=== PATIENT | female | born 1970 | race African-American/Black ===

== ENCOUNTER 2019-10-16 11:46 | Emergency (ER) | payer OTHER, SELFPAY ==
[2019-10-16 12:07] VITALS: BP 125/82; PULSE 69; RESP 16; TEMP 36.6; O2SAT 100
--- NOTE | 2019-10-16 12:08 | ECG_ITS ---
Measurements Intervals [place] Rate: 64 P: 44 IA: 153 QRS: -1 QRSD: 81 T: -20 QT: 385 QTc: 398 Interpretive Statements SINUS RHYTHM LOW QRS VOLTAGE IN PRECORDIAL LEADS BORDERLINE ST-T WAVE ABNORMALITY- INFERIOR LEADS BORDERLINE ECG Electronically Signed On 10-16-2019 13:04:08 CDT by Anatoliy Lee D.O.
--- NOTE | 2019-10-16 12:11 | ED.CHESTPAIN ---
HPI - Chest Pain General Chief Complaint: Chest Pain Stated Complaint: Chest pain Time Seen by Provider: 10/16/19 11:58 Source: patient and RN notes reviewed Mode of arrival: ambulatory Limitations: no limitations History of Present Illness HPI narrative: Patient presents today with a 2-day history of right sternal chest pain with no radiation. She describes the pain as tightness. Pain does not increase when she takes a deep breath or with movement. Denies cough or recent illness. Denies sweats or chills, or known fever. Denies any nausea, vomiting, abdominal pain. On September 26, patient had an MS and was seen at [facility]. Days after her discharge, she was returned with a CVA. She also had an implanted child monitor placed during this timeframe. She currently takes aspirin, Plavix, amlodipine, atorvastatin, carvedilol. She stopped smoking when she had the MS. States she believes her right breast is swollen as well. Currently rates her pain 02/01. MD complaint: chest pain Related Data Home Medications Medication Instructions Recorded Confirmed amlodipine [Norvasc] 10 mg PO DAILY 10/16/19 10/16/19 aspirin 81 mg PO DAILY 10/16/19 10/16/19 atorvastatin [Lipitor] 40 mg PO DAILY 10/16/19 10/16/19 carvedilol [Coreg] 12.5 mg PO BID 10/16/19 10/16/19 clopidogrel [Plavix] 75 mg PO DAILY 10/16/19 10/16/19 nicotine 1 patch TRANSDERMAL DAILY 10/16/19 10/16/19 Allergies Allergy/AdvReac Type Severity Reaction Status Date / Time hydrocodone Allergy Hallucinati Verified 10/16/19 12:04 ng Review of Systems Review of Systems: Narrative: CONSTITUTIONAL: Denies body aches, fever, chills, or sweats. EYES: Denies visual changes, redness, or discharge. ENT: Denies rhinorrhea, congestion, sore throat, or otalgia. CARDIOVASCULAR: Denies palpitations, or edema.+ Chest pain RESPIRATORY: Denies cough or dyspnea. GASTROINTESTINAL: Denies abdominal pain, nausea, vomiting, or diarrhea. GENITOURINARY: Denies dysuria or hematuria. SKIN: Denies rash, itching, or wounds. Right breast swelling MUSCULOSKELETAL: Denies back pain, joint pain, or myalgia. NEUROLOGIC: Denies headache, numbness, tingling, or weakness. PSYCH: Denies depression or anxiety. ON LICENSE OF [facility] Past Medical History Medical History (Updated 10/16/19 @ 12:20 by Hailey Harding, [employer], ) History of CVA (cerebrovascular accident) History of myocardial infarction Comments At time of signature, I have reviewed and agree with nursing past medical, surgical, social and family history unless otherwise noted. Please see nursing chart for further information. There is no relevant family history pertinent to the presenting complaint Exam Narrative: Exam Narrative: GENERAL: Well-appearing, well-nourished, and in no acute distress. HEAD: Normocephalic, atraumatic. EYES: EOMI. No redness or drainage. Conjunctivae normal. ENT: Mucous membranes pink and moist. NECK: Normal AROM. Supple. No lymphadenopathy. CHEST: No respiratory distress. Clear to auscultation. Chest is nontender to palpation. Right breast appears normal. It is nontender to palpation. HEART: Regular rate and rhythm. No murmur appreciated. Normal peripheral pulses. ABDOMEN: Soft, nontender, nondistended, normal active bowel sounds. MUSCULOSKELETAL: No bony tenderness. EXTREMITIES: Normal range of motion. No edema. Strength normal in all extremities. SKIN: Warm, dry, no rash. NEURO: No focal deficits. Alert and oriented x3. Gait steady. PSYCH: Normal affect. No signs of depression or anxiety. Course Vital Signs Vital signs: Vital Signs Temperature 97.8 F 10/16/19 12:07 Pulse Rate 69 10/16/19 12:07 Respiratory Rate 16 10/16/19 12:07 Blood Pressure 125/82 10/16/19 12:07 Pulse Oximetry 100 10/16/19 12:07 Temperature 97.8 F 10/16/19 12:07 Pulse Rate 69 10/16/19 12:07 Respiratory Rate 16 10/16/19 12:07 Blood Pressure 125/82 10/16/19 12:07 Pulse Oximetry 100 10/16/19 12
--- NOTE | 2019-10-16 12:27 | ECG_ITS ---
Measurements Intervals [place] Rate: 64 P: 44 NV: 153 QRS: -1 QRSD: 81 T: -20 QT: 385 QTc: 398 Interpretive Statements SINUS RHYTHM LOW QRS VOLTAGE IN PRECORDIAL LEADS BORDERLINE ST-T WAVE ABNORMALITY- INFERIOR LEADS BORDERLINE ECG Electronically Signed On 10-16-2019 13:04:08 CDT by Anatoliy ALMONTE
== END 2019-10-16 12:15 | disposition short-term general hospital (02) ==
PROVIDERS: Emergency Provider Nurse Practitioner; PCP Family Medicine
DX: R07.9 Chest pain, unspecified (principal); Z86.73 Personal history of transient ischemic attack (TIA), and cerebral infarction without residual deficits; I25.2 Old myocardial infarction; Z79.01 Long term (current) use of anticoagulants; Z87.891 Personal history of nicotine dependence
CPT/HCPCS: 93005; 99212; G0463

== ENCOUNTER 2020-12-26 17:09 | Outpatient (CLI) | payer OTHER, SELFPAY ==
--- NOTE | ~2020-12-26 | MM_ITS ---
EXAMINATION: MM screening nica BI w giovanni HISTORY: Screening TECHNIQUE: Craniocaudal and mediolateral oblique 3-D tomosynthesis images were obtained and synthetic 2-D images were generated. CAD analysis was submitted and interpreted. COMPARISON: 09/20/2018 BREAST PARENCHYMAL COMPOSITION: The breasts are heterogeneously dense, which may obscure small masses . FINDINGS: There are asymmetries in the upper central right breast, middle third. The left breast is s table without evidence for malignancy. IMPRESSION: 1. Focal right breast asymmetry. 2. Additional mammographic views and possible breast ultrasound are recommended. BI-RADS Category 0: Incomplete: Needs additional imaging evaluation. Reviewed, dictated and finalized at location A. IMPRESSION: 1. Focal right breast asymmetry. 2. Additional mammographic views and possible breast ultrasound are recommended . BI-RADS Category 0: Incomplete: Needs additional imaging evaluation.
== END 2020-12-26 17:10 | disposition home or self-care (01) ==
LOC: ANHIMG 17:12
PROVIDERS: PCP Family Medicine; Visit Provider Family Medicine
DX: Z12.31 Encounter for screening mammogram for malignant neoplasm of breast (principal); R92.8 Other abnormal and inconclusive findings on diagnostic imaging of breast
CPT/HCPCS: 77063; 77067

== ENCOUNTER → 2021-01-24 08:37 | Outpatient (CLI) | payer OTHER, SELFPAY ==
--- NOTE | ~2021-01-24 | MMUS_ITS ---
EXAMINATION: MM diagnostic mammo unilat RT, US breast RT complete HISTORY: Follow-up right breast asymmetries TECHNIQUE: Additional 3-D tomosynthesis images of the right breast were performed and synthetic 2-D i mages were generated. CAD analysis was submitted and interpreted. High resolution complete right sly st ultrasound was performed. COMPARISON: 12/26/2020 BREAST PARENCHYMAL COMPOSITION: Breast composed of scattered areas of fibroglandular density. FINDINGS: MAMMOGRAPHIC FINDINGS: Focal asymmetry in the upper central aspect of the right breast is persistent, although no discrete m ass is identified. There is no focal architectural distortion or suspicious cluster of calcifications . ULTRASOUND: Complete right breast ultrasound: At 1:00, 4 cm from the nipple, there is an 8 mm cyst. At 7:00, 6 cm from the nipple, there is an 8 mm cyst. Near the arterial lobe there is a cystic structure measuring up to 9 mm which may represent a cluster of cyst or a focally dilated duct. No suspicious masses are identified. IMPRESSION: 1. No evidence for malignancy in the right breast. Benign findings. 2. Routine yearly screening mammogram and regular clinical breast examination are recommended. BI-RADS Category 2: Benign finding(s). Reviewed, dictated and finalized at location A. IMPRESSION: 1. No evidence for malignancy in the right breast. Benign findings. 2. Routine yearly screening mammogram and regular clinical breast examination a re recommended. BI-RADS Category 2: Benign finding(s).
== END ==
PROVIDERS: PCP Family Medicine; Visit Provider Nurse Practitioner
DX: N64.89 Other specified disorders of breast (principal); N60.01 Solitary cyst of right breast
CPT/HCPCS: 76641; 77065

== ENCOUNTER → 2021-05-26 12:34 | Outpatient (CLI) | payer OTHER, SELFPAY ==
--- NOTE | ~2021-05-26 | XR_ITS ---
XR knee LT min 4V DATE: 05/26/2021 13:07 INDICATION: Left knee pain TECHNIQUE: [place] and standing AP, PA and lateral views COMPARISON: None FINDINGS: No fracture or dislocation or joint effusion. Joint spaces are well preserved. No radiopaqu e intra-articular loose body or chondrocalcinosis. No periosteal reaction or bone destruction. IMPRESSION: No significant abnormality Reviewed, dictated and finalized at location A. IMPRESSION: No significant abnormality
== END ==
PROVIDERS: PCP Family Medicine; Visit Provider Nurse Practitioner Family
DX: M25.562 Pain in left knee (principal)
CPT/HCPCS: 73564

== ENCOUNTER → 2021-08-15 09:15 | Outpatient (CLI) | payer OTHER, SELFPAY ==
--- NOTE | ~2021-08-15 | XR_ITS ---
XR finger 1st LT min 2V DATE: 08/15/2021 11:05 INDICATION: Left first digit pain TECHNIQUE: 3 views COMPARISON: None FINDINGS: There is minimal osteoarthritis at the first metatarsophalangeal joint. No fracture, disloc ation, periosteal reaction or bone destruction, erosive change or chondrocalcinosis, subcutaneous emp hysema or radiopaque foreign body. 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 IC MANGLER
== END ==
PROVIDERS: PCP Family Medicine
DX: M79.645 Pain in left finger(s) (principal); M19.042 Primary osteoarthritis, left hand
CPT/HCPCS: 73140

== ENCOUNTER → 2022-02-06 11:12 | Outpatient (CLI) | payer OTHER, SELFPAY ==
--- NOTE | ~2022-02-06 | MR_ITS ---
EXAMINATION: MR knee LT wo con DATE: 02/06/2022 11:50 INDICATION: Left knee pain TECHNIQUE: Magnetic resonance imaging (MRI) of the left knee was performed without intravenous contra st. Sequences included coronal PD-weighted FSE, coronal PD-weighted FS FSE, sagittal T2-weighted FSE , sagittal PD-weighted FS FSE and axial PD weighted fat saturated FSE. COMPARISON: 05/26/2021 FINDINGS: Medial compartment: Medial meniscus is normal. Partial-thickness chondral ulceration involving approximately 50% the cart ilage thickness and without degenerative subchondral changes along the anterior weightbearing medial femoral condyle. Lateral compartment: Lateral meniscus is normal. Articular cartilage is normal. Patellofemoral compartment: Deep chondral fissuring without degenerative subchondral changes at the medial patellar facet. Additi onal partial thickness chondral fissure involving less than 50% the cartilage thickness at the medial side of the lateral patellar facet. Trochlear cartilage is normal. Ligaments and tendons: Anterior and posterior cruciate ligaments are normal. The fibular collateral ligament complex is norm al. There is prominent soft tissue edema surrounding the anterior cruciate ligament and medial patell ofemoral retinaculum. Partial tear of the confluence of the medial patellofemoral retinaculum and the anterior margin of the medial collateral ligament. Patellar tendon is normal. Mild distal quadriceps tendinopathy. The visualized medial and lateral hamstring tendons as well as the iliotibial band are normal. Fluid: Large left knee joint effusion. There is diffuse subcutaneous edema about the knee. Moderate-sized Ba ker's cyst likely partially ruptured with fluid tracking caudally along the superficial margin of the normal-appearing medial head of the gastrocnemius muscle No loose osteochondral bodies identified. Osseous/other: Normal marrow signal. No fracture or pathologic marrow replacing process. IMPRESSION: 1. Moderate grade sprain/partial tear of the medial patellofemoral retinaculum and anterior margin of the medial collateral ligament. 2. 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 3. Large left knee joint effusion and moderate-sized likely partially ruptured Leblanc's cyst. Reviewed, dictated and finalized at location B. IMPRESSION: 1. Moderate grade sprain/partial tear of the medial patellofemoral retinaculum and anterior margin of the medial collateral ligament. 2. Moderate grade chondromalacia along the anterior weightbearing medial femora l condyle and at the medial and lateral patellar facets. 3. Large left knee joint effusion and moderate-sized likely partially ruptured Leblanc's cyst.
== END ==
PROVIDERS: PCP Family Medicine; Visit Provider Nurse Practitioner Adult Health
DX: R29.898 Other symptoms and signs involving the musculoskeletal system (principal); M25.462 Effusion, left knee
CPT/HCPCS: 73721